=== PATIENT | female | born 2005 | race African-American/Black ===

== ENCOUNTER 2024-06-03 23:00 | Emergency (ER) | payer OTHER, SELFPAY ==
[2024-06-03 23:08] VITALS: BP 134/76; PULSE 91; RESP 18; TEMP 37.3; O2SAT 97
--- NOTE | 2024-06-03 23:15 | DI.RAD_ITS ---
Exam(s) XR HUMERUS LT EXAM: XR HUMERUS LT CLINICAL HISTORY: fall, pain, swelling. TECHNIQUE: 2D digital imaging was performed. COMPARISON: No exams were available for comparison FINDINGS: Two views No evidence of fracture nor dislocation nor abnormal soft tissue calcifications. Density normal. No osseous lesions. No soft tissue gas. No radiopaque foreign bodies IMPRESSION: No significant osseous findings in the humerus. DATA REPOSITORY: RADIATION DOSE DELIVERED:
--- NOTE | 2024-06-03 23:15 | DI.RAD_ITS ---
Exam(s) XR FOREARM LT EXAM: XR FOREARM LT CLINICAL HISTORY: fall, pain, swelling. TECHNIQUE: 2D digital imaging was performed. COMPARISON: CR,XR XR HUMERUS LT from 06/03/2024 FINDINGS: Two views: There is a nondisplaced fracture lateral aspect of the radial head. No joint incongruity. Joint eff usion-hemarthrosis is noted. Bone density normal. No osseous lesions. The remainder of the forearm bones appear intact. IMPRESSION: Nondisplaced radial head fracture. DATA REPOSITORY: RADIATION DOSE DELIVERED:
--- NOTE | 2024-06-03 23:42 | ED.GENADUL_ITS ---
Discharge Plan Disposition Patient Disposition: Home Condition: Improving Discharge Details Clinical Impression: Fracture of radial head, left, closed ED Provider: Luis Cloud Home Meds and New Rx's Prescriptions: New oxycodone-acetaminophen [Percocet] 5-325 mg tablet 1 tab PO Q6H PRN (Reason: pain) Qty: 14 0RF Discharge Instructions Instructions: Radius Fracture (DC), How to Use a Shoulder Sling ED Additional Instructions: Use the sling provided to keep your elbow in a neutral station for the next 24 to 48 hours. Apply cold compresses intermittently to the area to help reduce the swelling and discomfort. You should take three 200 mg ibuprofen tablets every 6 hours for the next 10 days, with a small amount of food or a snack. This medication will decrease the inflammation and swelling in the joint over time and improve your pain. You can take 1 oral Percocet tablet at night before bed to help you sleep. This medication will make you sleepy and impair your coordination, so use caution similar to alcohol when taking it. Never drive or perform any hazardous activities after taking this medication, be prepared to get rest. Do not combine this medication with alcohol or other sedative drugs like marijuana or other opioids, as the effects will be additive and can be life-threatening. You should begin to try to fully extend your elbow sometime within the next 24 to 48 hours and work every day to try to increase the range in your elbow straightening. This will be painful but will prevent your joint from stiffening and limiting your range of motion in the future. Contact and follow-up with Dr. Bearden's office for reevaluation and ongoing management. If you are not improving your range of motion your elbow, they may refer you to physical therapy for ongoing management. Referrals: Pool Bearden MD [ [facility] STAFF PHYSICIAN] - Discharge Data Discharge Physician: Luis Cloud [facility] General Date/Time Provider Initiated Documentation: 06/03/24 23:26 . HPI Narrative: The patient is a 18-year-old female, with no contributory past medical history, who presents emergency department seeming complaining of pain and swelling predominantly in her left forearm after having a fall this afternoon on ice and landing on her left arm. The patient states that she slipped and her legs came out from under her and she initially landed on her buttocks but then fell onto her left arm. Initially she seemed to indicate to nursing that she landed on her elbow, but she tells me that she landed flat on her arm on that side. She has pain predominantly in the lower forearm but also has discomfort in the elbow with supination, pronation, and flexion extension. She reports that she has no discomfort in the shoulder or collarbone area. Related Data Home Medications ?Medication ?Instructions ?Recorded ?Confirmed oxycodone-acetaminophen 5 mg-325 1 tab PO Q6H PRN pain #14 tabs 03/05/25 mg tablet (Percocet) Previous Rx's ?Medication ?Instructions ?Recorded oxycodone-acetaminophen 5 mg-325 1 tab PO Q6H PRN pain #14 tabs 03/05/25 mg tablet (Percocet) Allergies Allergy/AdvReac Type Severity Reaction Status Date / Time No Known Allergies Allergy Unverified 06/03/24 23:10 General Stated Complaint: Orthopedic KEYA: 4 Exam Const General: cooperative, healthy appearing and well developed Nutritional Appearance: average body habitus Orientation: alert, awake and oriented x3 Skin General skin exam: no rashes or lesions noted Trauma: no lacerations or abrasions Neuro General: moves all extremities, normal light touch, pain and propioception, no focal motor deficits and CN's II-XI intact bilaterally Extrem Left upper extremity: normal capillary refill, edema (There is generalized edema in the forearm/lower brachium compared to right), shoulder/upper arm Details: inspection abnormal and normal ROM; no tenderness and wrist Details: normal ROM; no tenderness; ROM limited (Pain to range of motion at the elbow joint with flexion, extension, and sup) and no cyanosis Course Vital Signs Vital signs: Vital Signs Temperature 37.3 C 06/03/24 23:08 Pulse 91 H 06/03/24 23:08 Respiratory Rate 18 06/03/24 23:08 Blood Pressure 134/76 06/03/24 23:08 Pulse Oximetry 97 06/03/24 23:08 Temperature 37.3 C 06/03/24 23:08 Temperature Source Temporal Artery Scan 06/03/24 23:08 Pulse 91 H 06/03/24 23:08 Respiratory Rate 18 06/03/24 23:08 Blood Pressure 134/76 06/03/24 23:08 Blood Pressure Position Sitting 03/04/25 23:08 Pulse Oximetry 97 06/03/24 23:08 Oxygen Delivery Method Room Air 06/03/24 23:08 Oxygen Flow Rate 0 06/03/24 23:08 Pain Level 10 06/03/24 23:15 Medical Decision Making The patient was seen and examined. There is generalized swelling in the forearm predominantly after the patient awoke from a nap. The patient states that the original injury occurred at around 4:30 in the afternoon and she slept for several hours when it she awoke in the arm was swollen and quite painful for her. The patient states that she initially fell on her buttocks but did land on her left arm. Her pain is predominantly located in the mid forearm and is most exacerbated by pronation, supination, and extension at the elbow. The patient will undergo x-rays of the forearm and humerus to determine if there are any breaks. If this is negative, the patient will be placed in a sling and I will recommend cold compresses and anti-inflammatory medications as a bridge to orthopedic follow-up as needed. If there is an underlying break, the patient will be splinted and referred to orthopedics. 12:55 - The patient's X-ray was read as negative by [facility] radiology, however, there appears to be a very subtle lucency through the radial head. This would explain the posterior effusion in the elbow joint, which is considered always pathologic. The patient will be placed in a sling on the left arm and given instructions for ice, oral anti-inflammatory medications, narcotic medications to help her sleep at night, and early range of motion activity after the first 24 to 48 hours. I will refer the patient to Dr. Bearden from orthopedics as an outpatient for follow-up. Quality:SDOH Health Related Social Needs: No Data to Display PFSH All Active Problems (Updated 06/04/24 @ 01:05 by Luis Cloud MD) Fracture of radial head, left, closed (Acute) Social History Smoking/Tobacco Use Status: Current every day Tobacco Type: e-cigarettes Smoking risk assessment performed?: Yes Alcohol Intake: never Drug use: Occasionally Substance use type: marijuana Do you feel safe at home: Yes Do you feel safe in your relationship?: Yes
--- NOTE | 2024-06-04 00:49 | DI.VRAD_ITS ---
PROCEDURE INFORMATION: Exam: XR Left Humerus Exam date and time: 06/03/2024 11:45 PM Age: 18 years old Clinical indication: Upper arm; Left; Fall, pain, swelling TECHNIQUE: Imaging protocol: Radiologic exam of the left humerus. Views: 2 or more views. COMPARISON: No relevant prior studies available. FINDINGS: Bones/joints: No acute fracture or subluxation. Soft tissues: Normal. IMPRESSION: No acute findings. Dictated and Authenticated by: Heriberto Arrieta MD. Orderin Pedro Luis Smith MD
--- NOTE | 2024-06-04 00:56 | DI.VRAD_ITS ---
PROCEDURE INFORMATION: Exam: XR Left Forearm Exam date and time: 06/03/2024 11:48 PM Age: 18 years old Clinical indication: Lower or forearm; Left; Fall, pain, swelling TECHNIQUE: Imaging protocol: Radiologic exam of the left forearm. Views: 2 views. COMPARISON: No relevant prior studies available. FINDINGS: Bones/joints: No acute displaced fracture or subluxation. There are anterior and posterior fat pad signs indicating the presence of joint effusion. Soft tissues: Normal. IMPRESSION: 1. No acute displaced fracture or subluxation. 2. Joint effusion. Dictated and Authenticated by: Heriberto Arrieta MD. Orderin Pedro Luis Smith MD
[2024-06-04] MEDS: Ibuprofen 600 MG TAB PO (01:05)
[2024-06-04] MEDS: oxyCODONE 5 mg/Acetaminophen 325 mg TAB 1 TAB PO (01:05)
== END 2024-06-04 01:09 | disposition home or self-care (01) ==
PROVIDERS: Emergency Provider Emergency Medicine Emergency Medical Services
DX: S52.125A Nondisplaced fracture of head of left radius, initial encounter for closed fracture (principal); F17.290 Nicotine dependence, other tobacco product, uncomplicated; W00.0XXA Fall on same level due to ice and snow, initial encounter; Y93.01 Activity, walking, marching and hiking
CPT/HCPCS: 99283; 73060; 73090